=== PATIENT | female | born 1995 | race African-American/Black ===

== ENCOUNTER 2018-06-05 09:22 | Emergency (ER) | payer OTHER ==
[2018-06-05 09:38] VITALS: BP 114/61
[2018-06-05] MEDS ORDERED: IBUPROFEN 800 MG TABLET PO STA (10:13)
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
== END 2018-06-05 10:33 | disposition home or self-care (01) ==
LOC: ED 09:22
DX: M54.6 Pain in thoracic spine (principal); V44.6XXA Car passenger injured in collision with heavy transport vehicle or bus in traffic accident, initial encounter
CPT/HCPCS: 99282; 99283; A9270

== ENCOUNTER 2018-08-10 21:58 | Emergency (ER) | payer OTHER ==
--- NOTE | 2018-08-10 22:27 | ED Physician Documentation ---
History of Present Illness - Stated complaint Stated Complaint: VOMITING/ST - Chief complaint Chief Complaint: Abd Pain - History obtained from History obtained from: Patient - Additonal information Additional information: Patient is a G1, P0 approximately 8-week 23-year-old female presenting with recurrent vomiting over the past 2 days. Patient denies fever, abdominal pain, urinary changes, stool changes, vaginal bleeding or discharge, but admits to acid reflux-like symptoms. Patient states that she is not taking vitamins and has not had a confirmatory ultrasound or other physician appointment regarding the as she would likely be terminated the . Patient continues on her Celexa for depression. No other worsening or improving factors noted. Review of Systems Constitutional: denies: Fever GI: reports: Nausea, Vomiting. denies: Abdominal Pain PD PAST MEDICAL HISTORY - Past Medical History Past Medical History: No Cardiovascular: None Respiratory: None Neuro: None Endocrine/Autoimmune: None GI: None SURGICAL SERVICES ASST: None : None HEENT: None Psych: None Musculoskeletal: None Derm: None - Past Surgical History Past Surgical History: No HEENT: Tonsil/Adenoidectomy - Present Medications Home Medications: Ambulatory Orders Medication Instructions Recorded Confirmed Citalopram [CeleXA] 20 mg DAILY 06/05/18 08/10/18 Ondansetron Odt [Zofran] 4 mg TL Q6H PRN #10 tablet 08/11/18 - Allergies Allergies/Adverse Reactions: Allergies Allergy/AdvReac Type Severity Reaction Status Date / Time No Known Drug Allergies Allergy Verified 08/10/18 22:19 - Social History Does the pt smoke?: No Smoking Status: Never smoker Does the pt drink ETOH?: No Does the pt have substance abuse?: Yes Substance Use and Type: Marijuana - Immunizations Immunizations are current?: Yes - POLST Patient has POLST: No PD ED PE NORMAL - Vitals Vital signs reviewed: Yes - General General: Alert and oriented X 3, No acute distress, Well developed/nourished - HEENT HEENT: Atraumatic, Moist mucous membranes - Cardiac Cardiac: RRR, No murmur - Respiratory Respiratory: No respiratory distress, Clear bilaterally - Abdomen Abdomen: Normal bowel sounds, Soft, Non tender, Non distended (Nongravid) - Derm Derm: Normal color, Warm and dry, No rash - Extremities Extremities: No deformity, No tenderness to palpate - Neuro Neuro: Alert and oriented X 3, No motor deficit, No sensory deficit - Psych Psych: Normal mood, Normal affect Results - Vitals Vitals: Vital Signs - 24 hr 08/10/18 08/11/18 22:15 00:25 Temperature 36.6 C 36.4 C L Heart Rate 67 64 Respiratory 16 16 Rate Blood Pressure 115/69 106/55 L O2 Saturation 99 100 Oxygen O2 Source Room air - Labs Labs: Laboratory Tests 08/10/18 08/10/18 08/10/18 22:55 22:55 22:55 WBC 11.2 H RBC 4.19 L Hgb 12.2 Hct 37.3 MCV 89.0 MCH 29.1 MCHC 32.7 RDW 13.8 Plt Count 286 MPV 7.5 L Neut # (Auto) 9.0 H Lymph # (Auto) 1.3 L [place] # (Auto) 0.8 Eos # (Auto) 0.0 Baso # (Auto) 0.0 Absolute Nucleated RBC 0.00 Nucleated RBC % 0.0 Sodium 135 Potassium 3.9 Chloride 99 L Carbon Dioxide 23 Anion Gap 13.0 BUN 10 Creatinine 0.7 Estimated GFR (MDRD) 128 Glucose 80 Calcium 9.6 Total Bilirubin 0.8 AST 20 ALT 14 Alkaline Phosphatase 31 L Total Protein 7.9 Albumin 4.1 Globulin 3.8 Albumin/Globulin Ratio 1.1 Lipase 21 L HCG, Quant 715438.00 Urine Color Urine Clarity Urine pH Ur Specific [place] Urine Protein Urine Glucose (UA) Urine Ketones Urine Occult Blood Urine Nitrite Urine Bilirubin Urine Urobilinogen Ur Leukocyte Esterase Ur Microscopic Review Urine Culture Comments 08/10/18 23:07 WBC RBC Hgb Hct MCV MCH MCHC RDW Plt Count MPV Neut # (Auto) Lymph # (Auto) [place] # (Auto) Eos # (Auto) Baso # (Auto) Absolute Nucleated RBC Nucleated RBC % Sodium Potassium Chloride Carbon Dioxide Anion Gap BUN Creatinine Estimated GFR (MDRD) Glucose Calcium Total Bilirubin AST ALT Alkaline Phosphatase Total Protein Albumin Globulin Albumin/Globulin Ratio Lipase HCG, Quant Urine Color YELLOW Urine Clarity CLEAR Urine pH 6.0 Ur Specific [place] >=1.030 H Urine Protein TRACE Urine Glucose (UA) NEGATIVE Urine Ketones >=80 H Urine Occult Blood NEGATIVE Urine Nitrite NEGATIVE Urine Bilirubin NEGATIVE Urine Urobilinogen 0.2 (NORMAL) Ur Leukocyte Esterase NEGATIVE Ur Microscopic Review NOT INDICATED Urine Culture Comments NOT INDICATED PD MEDICAL DECISION MAKING - ED course Complexity details: reviewed results, re-evaluated patient, considered differential, d/w patient ED course: Patient is presenting with vomiting while raising concerns for hyperemesis gravidarum. Patient denies other symptoms would raise high suspicion for UTI, appendicitis, diverticulitis, bowel obstruction, or other intra-abdominal process, but considered. Physical exam is relatively otherwise unremarkable. No acute or surgical abdomen present. Patient started on IV fluids and given Zofran. At this time, patient plans to abort and continues to take her Celexa as well as does not take vitamins. Screening lab work and urinalysis obtained which returned relatively unremarkable except for changes usually seen in such as mild leukocytosis, as well as presence of ketones in urine indicating dehydration from repetitive vomiting. This was further addressed with IV fluids. Upon reevaluation, patient notes significant improvement of symptoms with Zofran. Plan to discharge patient home with Zofran prescription as needed. Also discussed that if she plans to continue at all, it is recommended to discuss her prescription medications with her doctor, start vitamins, only take Tylenol as needed for pain and fever relief, and obtain further care. Also discussed other strict return precautions and appropriate follow-up. Patient voiced understanding and is comfortable with discharge plan. Departure - Departure Disposition: 01 Home, Self Care Clinical Impression: Hyperemesis gravidarum Condition: Good Instructions: ED Preg Morning Sickness Follow-Up: your,doctor [Other] - Within 3 Days Prescriptions: Ondansetron Odt [Zofran] 4 mg TL Q6H PRN #10 tablet PRN Reason: Nausea / Vomiting Comments: Please follow-up with your primary care physician, [facility] RN, [facility] in next 2 to 3 days to discuss further care. May use Zofran as instructed to help control nausea and vomiting. Recommend hydration with Powerade/Gatorade and advancing diet as tolerated. Return to ED sooner if expands worsening symptoms or other concerns.
[2018-08-10] MEDS ORDERED: SODIUM CHLORIDE 0.9% 1,000 ML IV ONE ×2 (22:32→23:49)
[2018-08-10] MEDS ORDERED: ONDANSETRON 4 MG/2 ML VIAL IVP STA (22:33)
[2018-08-10 23:03] LABS: BASOPHILS % (AUTO) 0.4 %; EOSINOPHILS % (AUTO) 0.4 %; HGB - HEMOGLOBIN 12.2 g/dL (12.0-16.0); LYMPHOCYTES # (AUTO) 1.3 10^3/uL (1.5-3.5); MEAN CORPUSCULAR HEMOGLOBIN 29.1 pg (27.0-31.0); MEAN CORPUSCULAR HGB CONC 32.7 g/dL (32.0-36.0); MEAN PLATELET VOLUME 7.5 fL (7.9-10.8); MONOCYTES # (AUTO) 0.8 10^3/uL (0.0-1.0); MONOCYTES % (AUTO) 7.2 %; PLT - PLATELET COUNT 286 10^3/uL (130-450); RED BLOOD COUNT 4.19 10^6/uL (4.20-5.40); RED CELL DISTRIBUTION WIDTH 13.8 % (12.0-15.0); WHITE BLOOD COUNT 11.2 x10^3/uL (4.8-10.8)
[2018-08-10 23:16] LABS: ALBUMIN 4.1 g/dL (3.2-5.5); ALBUMIN/GLOBULIN RATIO 1.1 (1.0-2.2); BILIRUBIN,TOTAL 0.8 mg/dL (0.2-1.0); CALCIUM 9.6 mg/dL (8.5-10.3); CREATININE 0.7 mg/dL (0.4-1.0); TOTAL PROTEIN 7.9 g/dL (6.7-8.2)
[2018-08-10 23:47] LABS: BILIRUBIN,URINE NEGATIVE (NEGATIVE); CLARITY,URINE CLEAR (CLEAR); GLUCOSE, URINE (UA) NEGATIVE (NEGATIVE); KETONES,URINE (UA) >=80 mg/dL (NEGATIVE); LEUKOCYTE ESTERASE, URINE NEGATIVE (NEGATIVE); NITRITE,URINE NEGATIVE (NEGATIVE); OCCULT BLOOD,URINE NEGATIVE (NEGATIVE); PROTEIN,URINE TRACE mg/dL (NEGATIVE); UROBILINOGEN,URINE 0.2 (NORMAL) E.U./dL (NORMAL)
[2018-08-11 01:53] VITALS: BP 115/58
== END 2018-08-11 01:53 | disposition home or self-care (01) ==
LOC: ED 21:58
DX: O21.0 Mild hyperemesis gravidarum (principal); Z3A.08 8 weeks gestation of pregnancy
CPT/HCPCS: 36415; 80053; 81001; 81003; 83690; 84702; 85025; 87086; 96361; 96374; 99283

== ENCOUNTER 2018-11-30 23:52 | Outpatient (CLI) | payer OTHER | END 2018-11-30 23:53 | disposition critical access hospital (66) | LOC: EMS 23:52 | PROVIDERS: ATTEND Surgery | DX: T45.0X2A Poisoning by antiallergic and antiemetic drugs, intentional self-harm, initial encounter (principal); R11.10 Vomiting, unspecified; R40.0 Somnolence | CPT/HCPCS: A0425; A0427 ==

== ENCOUNTER 2018-12-01 00:20 | Emergency (ER) | payer OTHER ==
[2018-12-01 00:54] LABS: MUDS CUTOFF CONCENTRATIONS CUTOFF CONC BELOW:
[2018-12-01 00:58] LABS: BILIRUBIN,URINE NEGATIVE (NEGATIVE); GLUCOSE, URINE (UA) NEGATIVE (NEGATIVE); KETONES,URINE (UA) 40 mg/dL (NEGATIVE); LEUKOCYTE ESTERASE, URINE NEGATIVE (NEGATIVE); NITRITE,URINE NEGATIVE (NEGATIVE); OCCULT BLOOD,URINE NEGATIVE (NEGATIVE); PROTEIN,URINE NEGATIVE (NEGATIVE); UROBILINOGEN,URINE 0.2 (NORMAL) E.U./dL (NORMAL)
[2018-12-01 01:00] LABS: CLARITY,URINE CLEAR (CLEAR); HCG UR QUAL NEGATIVE
--- NOTE | 2018-12-01 01:05 | ED Physician Documentation ---
PD HPI OVERDOSE - Stated complaint Stated Complaint: SI - Chief complaint Chief Complaint: MHE - History obtained from History obtained from: Patient - History of Present Illness Timing - onset: Enter time (20:00), Today Subtance(s) ingested: Single Associated symptoms: No: Resp depression, Resp arrest, Unresponsive, Decreased responsiveness, Altered mental status Contributing factors: Depresssed, Suicidal Pain level now: 0 Similar symptoms before: Has not had sx before Recently seen: Not recently seen - Additional information Additional information: BIBBrianne for intentional overdose, took approximately 20 tablets unisom. Patient tells me she did this "because I wanted to kill myself" (per patient). She cites family-related stressors without specific trigger. She denies h/o self-harm but was inpatient at [facility] towards the end of 2018 for SI Review of Systems Constitutional: reports: Reviewed and negative Eyes: reports: Reviewed and negative Ears: reports: Reviewed and negative Cardiac: reports: Reviewed and negative Respiratory: reports: Reviewed and negative GI: reports: Reviewed and negative : denies: Unable to Void Neurologic: reports: Reviewed and negative Psychiatric: reports: Depressed, Suicidal. 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 : None HEENT: None Psych: None Musculoskeletal: None Derm: None - Past Surgical History Past Surgical History: No HEENT: Tonsil/Adenoidectomy - Present Medications Home Medications: Ambulatory Orders Medication Instructions Recorded Confirmed Citalopram [CeleXA] 20 mg DAILY 06/05/18 08/10/18 Ondansetron Odt [Zofran] 4 mg TL Q6H PRN #10 tablet 08/11/18 - Allergies Allergies/Adverse Reactions: Allergies Allergy/AdvReac Type Severity Reaction Status Date / Time No Known Drug Allergies Allergy Verified 12/01/18 00:25 - Social History Does the pt smoke?: No Smoking Status: Never smoker Does the pt drink ETOH?: No Does the pt have substance abuse?: Yes - Immunizations Immunizations are current?: Yes - POLST Patient has POLST: No PD ED PE NORMAL - Vitals Vital signs reviewed: Yes - General General: Alert and oriented X 3, No acute distress, Well developed/nourished, Other (drowsy but conversant and answers appropriately with clear speech) - HEENT HEENT: PERRL, EOMI, Moist mucous membranes - Neck Neck: Supple, no meningeal sign - Cardiac Cardiac: RRR, No murmur - Respiratory Respiratory: No respiratory distress, Clear bilaterally - Abdomen Abdomen: Soft, Non tender - Derm Derm: Normal color, Warm and dry - Neuro Neuro: Alert and oriented X 3 Eye Opening: To Voice Motor: Obeys Commands Verbal: Oriented GCS Score: 14 Results - Vitals Vitals: Vital Signs - 24 hr 12/01/18 12/01/18 12/01/18 00:21 00:29 01:12 Temperature 36.8 C Heart Rate 77 88 57 L Respiratory 15 17 Rate Blood Pressure 134/95 H 129/81 H O2 Saturation 100 98 12/01/18 12/01/18 12/01/18 01:52 03:20 05:36 Temperature 36.7 C Heart Rate 70 75 61 Respiratory 17 17 16 Rate Blood Pressure 125/69 106/90 H 124/62 O2 Saturation 99 97 98 12/01/18 09:00 Temperature 36.4 C L Heart Rate 81 Respiratory 16 Rate Blood Pressure 112/62 O2 Saturation 96 Oxygen O2 Source Room air - Labs Labs: Laboratory Tests 12/01/18 12/01/18 12/01/18 00:44 00:44 01:03 WBC 5.4 RBC 4.02 L Hgb 11.5 L Hct 35.9 L MCV 89.3 MCH 28.6 MCHC 32.0 RDW 12.6 Plt Count 240 MPV 9.5 Neut # (Auto) 3.2 Lymph # (Auto) 1.5 [place] # (Auto) 0.6 Eos # (Auto) 0.1 Baso # (Auto) 0.0 Absolute Nucleated RBC 0.00 Nucleated RBC % 0.0 Sodium Potassium Chloride Carbon Dioxide Anion Gap BUN Creatinine Estimated GFR (MDRD) Glucose Calcium Total Bilirubin AST ALT Alkaline Phosphatase Total Protein Albumin Globulin Albumin/Globulin Ratio Lipase Urine Color YELLOW Urine Clarity CLEAR Urine pH 7.0 Ur Specific [place] 1.010 Urine Protein NEGATIVE Urine Glucose (UA) NEGATIVE Urine Ketones 40 H Urine Occult Blood NEGATIVE Urine Nitrite NEGATIVE Urine Bilirubin NEGATIVE Urine Urobilinogen 0.2 (NORMAL) Ur Leukocyte Esterase NEGATIVE Ur Microscopic Review NOT INDICATED Urine Culture Comments NOT INDICATED Urine HCG, Qual NEGATIVE Salicylates Urine Opiates Screen NEGATIVE Ur Oxycodone Screen NEGATIVE Urine Methadone Screen NEGATIVE Ur Propoxyphene Screen NEGATIVE Acetaminophen Ur Barbiturates Screen NEGATIVE Ur Tricyclics Screen NEGATIVE Ur Phencyclidine Scrn NEGATIVE Ur Amphetamine Screen NEGATIVE U Methamphetamines Scrn NEGATIVE U Benzodiazepines Scrn NEGATIVE Urine Cocaine Screen NEGATIVE U Cannabinoids Screen POSITIVE H Ethyl Alcohol 12/01/18 01:03 WBC RBC Hgb Hct MCV MCH MCHC RDW Plt Count MPV Neut # (Auto) Lymph # (Auto) [place] # (Auto) Eos # (Auto) Baso # (Auto) Absolute Nucleated RBC Nucleated RBC % Sodium 140 Potassium 2.9 L Chloride 104 Carbon Dioxide 26 Anion Gap 10.0 BUN 11 Creatinine 0.7 Estimated GFR (MDRD) 128 Glucose 85 Calcium 9.2 Total Bilirubin 0.2 AST 16 ALT 10 Alkaline Phosphatase 28 L Total Protein 7.1 Albumin 4.2 Globulin 2.9 Albumin/Globulin Ratio 1.4 Lipase 21 L Urine Color Urine Clarity Urine pH Ur Specific [place] Urine Protein Urine Glucose (UA) Urine Ketones Urine Occult Blood Urine Nitrite Urine Bilirubin Urine Urobilinogen Ur Leukocyte Esterase Ur Microscopic Review Urine Culture Comments Urine HCG, Qual Salicylates < 6.0 Urine Opiates Screen Ur Oxycodone Screen Urine Methadone Screen Ur Propoxyphene Screen Acetaminophen < 10 L Ur Barbiturates Screen Ur Tricyclics Screen Ur Phencyclidine Scrn Ur Amphetamine Screen U Methamphetamines Scrn U Benzodiazepines Scrn Urine Cocaine Screen U Cannabinoids Screen Ethyl Alcohol 7.0 PD MEDICAL DECISION MAKING - ED course Complexity details: reviewed results, re-evaluated patient, considered differential, d/w patient ED course: Telepsych consulted and recommendation is voluntary inpatient tx. Plan [facility]. Departure - Departure Disposition: 65 Psych Hosp/Unit DC/Xfer Clinical Impression: Suicidal ideation Medication overdose Qualifiers: Encounter type: initial encounter Injury intent: intentional self-harm Qualified Code(s): T50.902A - Poisoning by unspecified drugs, medicaments and biological substances, intentional self-harm, initial encounter Condition: Good Discharge Date/Time: 12/01/18 09:46
[2018-12-01 01:06] LABS: AMPHETAMINE SCREEN,URINE NEGATIVE (NEGATIVE); BENZODIAZEPINES SCREEN, URINE NEGATIVE (NEGATIVE); COCAINE SCREEN URINE NEGATIVE (NEGATIVE); METHADONE SCREEN, URINE NEGATIVE (NEGATIVE); METHAMPHETAMINES SCREEN, URINE NEGATIVE (NEGATIVE); OPIATE SCREEN, URINE NEGATIVE (NEGATIVE); OXYCODONE SCREEN, URINE NEGATIVE (NEGATIVE); PROPOXYPHENE SCREEN, URINE NEGATIVE (NEGATIVE); TRICYCLIC ANTIDEPRESSANT,URINE NEGATIVE (NEGATIVE)
[2018-12-01 01:09] LABS: BASOPHILS % (AUTO) 0.4 %; EOSINOPHILS # (AUTO) 0.1 10^3/uL (0.0-0.7); EOSINOPHILS % (AUTO) 0.9 %; HGB - HEMOGLOBIN 11.5 g/dL (12.0-16.0); LYMPHOCYTES # (AUTO) 1.5 10^3/uL (1.5-3.5); LYMPHOCYTES % (AUTO) 28.2 %; MEAN CORPUSCULAR HEMOGLOBIN 28.6 pg (27.0-31.0); MEAN CORPUSCULAR VOLUME 89.3 fL (81.0-99.0); MEAN PLATELET VOLUME 9.5 fL (7.9-10.8); MONOCYTES # (AUTO) 0.6 10^3/uL (0.0-1.0); MONOCYTES % (AUTO) 10.8 %; NEUTROPHILS # (AUTO) 3.2 10^3/uL (1.5-6.6); NEUTROPHILS % (AUTO) 59.5 %; PLT - PLATELET COUNT 240 10^3/uL (130-450); RED BLOOD COUNT 4.02 10^6/uL (4.20-5.40); RED CELL DISTRIBUTION WIDTH 12.6 % (12.0-15.0); WHITE BLOOD COUNT 5.4 x10^3/uL (4.8-10.8)
[2018-12-01 01:24] LABS: ACETAMINOPHEN < 10 ug/mL (10-30); ALBUMIN 4.2 g/dL (3.2-5.5); ALBUMIN/GLOBULIN RATIO 1.4 (1.0-2.2); ALKALINE PHOSPHATASE 28 IU/L (42-121); ALT ALANINE AMINOTRANSFERASE 10 IU/L (10-60); AST ASPARTATE AMINOTRANSFERASE 16 IU/L (10-42); BILIRUBIN,TOTAL 0.2 mg/dL (0.2-1.0); BUN - BLOOD UREA NITROGEN 11 mg/dL (6-20); CALCIUM 9.2 mg/dL (8.5-10.3); CARBON DIOXIDE - CO2 26 mmol/L (21-32); CHLORIDE 104 mmol/L (101-111); CREATININE 0.7 mg/dL (0.4-1.0); GFR - MDRD 128 (>89); GLUCOSE 85 mg/dL (70-100); LIPASE 21 U/L (22-51); SALICYLATE < 6.0 mg/dL; SODIUM 140 mmol/L (135-145); TOTAL PROTEIN 7.1 g/dL (6.7-8.2)
[2018-12-01] MEDS ORDERED: POTASSIUM CHLORIDE 20 MEQ TABLET PO STA (02:58)
--- NOTE | 2018-12-01 04:58 | TELEPSYCH PHYS NOTE ---
Telepsych Note - CHIEF COMPLAINT/HX OF PRESENT ILLNESS Cheif Complaint and History of Present Illness: Name: Katarzyna Marrufo : [birth year]. 23F Date: 12/01/18 Time: 7:18am Location of patient: [facility] ED Location of doctor: [facility] This evaluation was conducted via telepsychiatry with the assistance of onsite staff Chief Complaint: s/p overdose History of Present Illness: Pt seen by televideo with help from the onsite staff. Pt is a 23 yo female with hx of depression and anxiety. Pt presented to the ED, s/p intentionally on an unknown amount of Unisom. Per staff, navy seal approximated #25-30 tabs. Pt admitted to medical staff that her intent was to kill herself. Pt seen and evaluated, chart reviewed and appreciated. Pt reports she has been feeling suicidal for the past year and very depressed for several years. Reports a hx of 2 previous suicide attempts and also inpt psychiatric admissions. Pt states over the past year her sxs worsened more significantly. States a build of of emotions led to her attempt. Reports she ingested a near full bottle of Unisom. States she then laid down and waited for it to take effect. States when she became nauseated and vomited several times she briefly changed her mind and called her for help. Currently denies SI and states I feel stupid because of what I did. Notes continued depression. Pt cites multiple stressors including her medical discharged from the June 2018, miscarriage in August 2018, ongoing broken relationship with her mother. States this has been the most prominent as she has been actively trying to rebuild the relationship however her mother has been resistant. She admits that she is not coping well. On ROS, pt denies AVHs, delusions nor HI. She denies current SI however she is s/p suicide attempt. Pt is a 23 yo female with a hx of Depression, previous suicide attempts and inpt psychiatric admissions. Pt is current s/p suicide attempt via intentional overdose on an unknown amount of Unisom. States she emptied a nearly full bottle. Pt cites worsening depression in the context of multiple stressors and poor coping. Pt presents as a danger to herself requiring acute inpt psychiatric admission for safety, stabilization and treatment. Pt is voluntary for inpt treatment. Collateral: Discussed case with staff and chart review. Unable to reach the pts mother at the number provided in the record. SI/ Self harm: Denies current SI, s/p suicide attempt and notes previous hx of 2 attempts. HI/Violence: Denies Trauma history: none reported Access to weapons: none reported Legal: none reported Psychiatric History/Treatment History: previous admissions, reports current treatment compliance. Drug/Alcohol History: none reported Medical History: none acute reported Medications & Freq: reviewed, see chart Allergies: NKDA Sleep: decreased recently Family Psych History/History of suicide distant cousin with depression and PTSD. Social History: lives with Education: currently enrolled in college Employed: medically discharged from the . Stressors: see HPI Strengths/supports: Appearance and attire: appropriate Attitude and behavior: cooperative Affect and mood: depressed / constricted Association and thought processes: linear, open Thought content: denies delusions. Denies HI. Denies current SI however she is s/p attempt. Perception: Denies AVHs Sensorium, memory, and orientation: AxOx3 Intellectual functioning: unable to assess fully Insight and judgment: impaired - SI/HI/SELF HARM SI/HI/SELF HARM (CURRENT OR HISTORY OF):: SI - PSYCHIATRIC HX/TREATMENT HX Psychiatric: None, Depression - MEDICAL HX Neurological History: None Eyes, Ears, Nose, Throat: None Cardiovascular: None Respiratory: None Skin: None Endocrine/Autoimmune: None Gastrointestinal: None Urinary: None Musculoskeletal: None Blood Disorders: None - HOME MEDICATIONS Home Meds (as last confirmed): Patient History Medication Instructions Recorded Confirmed Citalopram [CeleXA] 20 mg DAILY 06/05/18 08/10/18 - ALLERGIES Allergies (as last confirmed): Allergies Allergy/AdvReac Type Severity Reaction Status Date / Time No Known Drug Allergies Allergy Verified 12/01/18 00:25 - TREATMENT/PHARMACOLOGICAL RECOMMENDATION Treatment - Pharmacological - Therapy Recommendations: Diagnosis: MDD, severe, recurrent without psychotic features. Impression/Risk Assessment: Pt is a 23 yo female with a hx of Depression, previous suicide attempts and inpt psychiatric admissions. Pt is current s/p suicide attempt via intentional overdose on an unknown amount of Unisom. States she emptied a nearly full bottle. Pt cites worsening depression in the context of multiple stressors and poor coping. Pt presents as a danger to herself requiring acute inpt psychiatric admission for safety, stabilization and treatment. Pt is voluntary for inpt treatment. Treatment Recommendations: Pt requires acute inpt psychiatric admission For safety, stabilization and treatment Pt is voluntary for inpt treatment Should the pt no longer agree to voluntary admission, she cannot leave and will require involuntary placement. - TIME SPENT & PROVIDER LOCATION Telepsych consultation conducted via videoconferencing: Yes List names and roles of persons who participated in consult: kieran marrufo Telepsych Provider Location: [place] Time Telepsych consult began: 07:18 Time Telepsych consult completed: 07:30
[2018-12-01 09:42] VITALS: BP 112/62
== END 2018-12-01 09:46 ==
LOC: EDUNIT# → ED 00:20
DX: T45.0X2A Poisoning by antiallergic and antiemetic drugs, intentional self-harm, initial encounter (principal); T14.91XA Suicide attempt, initial encounter; F32.9 Major depressive disorder, single episode, unspecified
CPT/HCPCS: 36415; 80053; 80320; 80329; 81003; 81025; 83690; 85025; 93005; 99284; 99285; A9270; 80306; 80307; 81001; 87086

== ENCOUNTER 2019-02-01 22:41 | Emergency (ER) | payer OTHER ==
[2019-02-01] MEDS ORDERED: ACETAMINOPHEN 325 MG TABLET PO STA (23:51)
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
[2019-02-02] MEDS ORDERED: IOVERSOL 320 100 ML VIAL IVP ONE ×2 (01:00)
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
[2019-02-02 01:55] VITALS: BP 121/60
== END 2019-02-02 01:58 | disposition home or self-care (01) ==
LOC: EEVIPCON 22:41 → ED 22:41
DX: S16.1XXA Strain of muscle, fascia and tendon at neck level, initial encounter (principal); T71.9XXA Asphyxiation due to unspecified cause, initial encounter; S10.93XA Contusion of unspecified part of neck, initial encounter; S10.91XA Abrasion of unspecified part of neck, initial encounter; M54.5 Low back pain; Y04.2XXA Assault by strike against or bumped into by another person, initial encounter
CPT/HCPCS: 70498; 99284; A9270; Q9967